=== PATIENT | female | born 1995 | race Two or more races ===

== ENCOUNTER 2020-08-25 22:38 | Emergency (ER) | payer MEDICARE, OTHER ==
[~2020-08-25] VITALS: Ht 157.5 cm; Wt 40.8 kg
--- NOTE | 2020-08-25 22:45 | NUR ---
PATIENTCAME TO THE ER BED 9 C/O BACK PAIN, HIP PAIN, AND JOINT PAINESPECIALLY ON THE KNEES PATIENT STATES THAT SHE HAS BEEN WALKING AROUND A LOT FROM PLACE TO PLACE. PATIENT STATES THAT SHE IS HOMELESS AND LOST HER INSURANCE CARD, WALLET, AND PHONE. PATIENT STATES THAT THE CARGO AGENT HAD HELPED HER CALLED 911. PATIENT IS AAOX4. NO SOB. BREATHING EVENLY AND UNLABORED ON ROOM AIR AT 100%. CONNECTED TO THE MONITOR. PATIENT IS AMBULATORY WITH A STEADY GAIT.
[2020-08-25] MEDS ORDERED: KETOROLAC TROMETHAMINE INJ 30 MG/ML VIAL IV ONE (23:30)
[2020-08-25] MEDS ORDERED: IV NS 0.9% 1,000 ML BAG IV ONE (23:30)
[2020-08-25 23:32] LABS: BILIRUBIN,URINE SMALL (NEGATIVE); COLOR,URINE YELLOW (YELLOW); LEUKOCYTE ESTERASE ,URINE Negative (NEGATIVE); NITRITE, URINE Negative (NEGATIVE); PH,URINE 5.5 (5.0-8.0); PROTEIN,URINE 30 mg/dl (NEGATIVE); UGLUCOSE Negative (NEGATIVE); UROBILINOGEN,URINE 0.2 EU/dL (0.2)
[2020-08-25] MEDS ORDERED: KETOROLAC TROMETHAMINE 15 MG/ML VIAL ONE (23:43)
[2020-08-25 23:46] LABS: BACTERIA,URINE 2+ /HPF (None Seen); RBC,URINE 0-2 /HPF (0-2); WBC,URINE 0-2 /HPF (0-3); YEAST,URINE Few /HPF (None Seen)
[2020-08-26 00:44] LABS: PLATELET COUNT (AUTO) 447 /CMM (150-450)
[2020-08-26 00:49] LABS: BASOPHILS # (AUTO) 0.2 /CMM (0.0-0.2); BASOPHILS % (AUTO) 1.2 % (0.0-2.0); EOSINOPHILS % (AUTO) 0.5 % (0.0-6.0); HEMATOCRIT 21 % (33-45); LYMPHOCYTES # (AUTO) 3.6 /CMM (0.8-4.8); LYMPHOCYTES % (AUTO) 28.1 % (20.0-44.0); MEAN CORPUSCULAR HGB CONC 34 g/dl (31.0-36.0); MEAN CORPUSCULAR VOLUME 94 fL (82-100); MONOCYTES # (AUTO) 1.5 /CMM (0.1-1.30); MONOCYTES % (AUTO) 11.6 % (2.0-12.0); NEUTROPHILS # (AUTO) 7.5 /CMM (1.8-8.9); NEUTROPHILS % (AUTO) 58.6 % (43.0-81.0); RED BLOOD CELL COUNT(AUTO) 2.22 MIL/uL (4.0-5.2); WHITE BLOOD COUNT (AUTO) 12.8 K/uL (4.3-11.0)
[2020-08-26 01:06] LABS: CALCIUM, SERUM 8.6 mg/dL (8.5-10.1); CREATININE 0.7 mg/dL (0.6-1.3); POTASSIUM 3.6 mmol/L (3.5-5.1)
--- NOTE | 2020-08-26 02:24 | NUR ---
PATIENT IS SLEEPING. EASILY AROUSABLE THROUGH VERBAL STIMULI. PATIENT IS BREATHING EVENLY AND UNLABORED ON ROOM AIR. 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 CALL LIGHT IS WITHIN REACH. WILL CONTINUE TO MONITOR PATIENT CLOSELY.
[2020-08-26] MEDS ORDERED: IBUP-1958 PO (04:36)
--- NOTE | 2020-08-26 06:10 | NUR ---
IV removed. Catheter intact and site benign. Pressure and 4x4 applied to site. No bleeding noted.
--- NOTE | 2020-08-26 06:11 | NUR ---
Patient given written and verbal discharge instructions. Patient verbalizes understanding of instructions. Patient is ambulatory with steady gait. Refuses offer of senior living placement. Patient given list of available shelters in surrounding area.
[2020-08-26 06:51] VITALS: BP 117/64
== END 2020-08-26 06:53 | disposition home or self-care (01) ==
LOC: ER 22:40
DX: D57.1 Sickle-cell disease without crisis (principal); M54.9 Dorsalgia, unspecified; Z20.822 Contact with and (suspected) exposure to COVID-19; Z88.1 Allergy status to other antibiotic agents; Z88.5 Allergy status to narcotic agent; Z59.0 Homelessness; D72.829 Elevated white blood cell count, unspecified
CPT/HCPCS: 36415 ×2; 80048; 81001; 83605; 84703; 85025; 85045; 87086; 87426; 96361; 96374; 99283; J1885; J7030; C9803